=== PATIENT | female | born 1980 | race Caucasian/White ===

== ENCOUNTER → 2019-07-15 | Outpatient (CLI) | payer OTHER ==
--- NOTE | 2019-07-15 09:38 | XR ---
EXAMINATION TYPE: XR knee complete RT DATE OF EXAM: 07/15/2019 CLINICAL HISTORY: pain TECHNIQUE: Three views of the right knee are obtained. COMPARISON: None. FINDINGS: There is no acute fracture/dislocation. The tri-compartment joint spaces appear within no rmal limits. The overlying soft tissue appears unremarkable. IMPRESSION: There is no acute fracture or dislocation. ICD 10 NO FRACTURE, INITIAL EVALUATION
== END | disposition home or self-care (01) ==
LOC: RADXRYALE 09:25
PROVIDERS: ATTEND Physician Assistant
DX: M25.561 Pain in right knee (principal)

== ENCOUNTER → 2020-11-26 | Outpatient (CLI) | payer OTHER ==
--- NOTE | 2020-11-26 21:33 | MR ---
EXAMINATION TYPE: MR brain wo con DATE OF EXAM: 11/26/2020 COMPARISON: NONE HISTORY: Chronic headache and dizziness/ Hx of 2 concussions TECHNIQUE: Multiplanar, multisequence imaging of the brain and brainstem is performed without IV cont rast. FINDINGS: Diffusion weighted images demonstrate no evidence of a recent infarct or other diffusion abnormality. There is no extraaxial fluid collection or significant white matter signal abnormality. The ventricu lar system and cisternal spaces are normal in size and appearance. The brain volume is age appropria te. Midline structures demonstrate normal morphology. The craniocervical junction appears within normal limits. Normal vascular flow voids are present. The visualized sinuses are clear and the globes are i ntact. IMPRESSION: Unremarkable study.
== END | disposition home or self-care (01) ==
LOC: RADMRIMAIN 18:47
PROVIDERS: ATTEND Psychiatry & Neurology Neurology
DX: G44.221 Chronic tension-type headache, intractable (principal); G43.009 Migraine without aura, not intractable, without status migrainosus
CPT/HCPCS: 70551